=== PATIENT | female | born 1985 | race American Indian/Alaskan Native ===

== ENCOUNTER 2025-08-04 14:06 | Emergency (ER) | payer BC, OTHER ==
[~2025-08-04] VITALS: Ht 165.1 cm; Wt 93.5 kg
[~2025-08-04 14:06] MED LIST: CEFUROXIME500 MG PO; GLUCOPHAGE500 MG PO; METFORMIN HCL500 MG PO; [UNRECOGNIZED DRUG - OTHER] PO
[2025-08-04] MEDS ORDERED: OZEMPIC2 MG/0.75 (14:20)
[2025-08-04] MEDS ORDERED: BUDESONIDE-FO10.2 G1 (14:20)
[2025-08-04] MEDS ORDERED: SODIUM CHLORIDE 0.9% 1,000 ML IV PRN (14:30)
[2025-08-04 14:36] LABS: BASOPHILS 0.2 % (0.1-1.2); EOSINOPHILS 0.1 % (0.7-5.8); LYMPHOCYTES 9.5 % (19.3-51.7); MCH 28.1 PG (25.6-32.2); MCHC 34.4 g/dL (32.2-35.5); MCV 81.9 fL (79.4-94.8); MONOCYTES 2.8 % (4.7-12.5); NEUTROPHILS 87.0 % (34.0-71.1); RBC 5.40 M/uL (3.93-5.22)
[2025-08-04 14:53] LABS: ALT (SGPT) 37.0 U/L (14-59); AST (SGOT) 18.0 U/L (15-37); GLOMERULAR FILTRATION RATE,EST 88.0 mL/min (>60); PROTEIN, TOTAL 8.3 g/dL (6.4-8.2); UREA NITROGEN 10.0 mg/dL (7-18)
[2025-08-04] MEDS ORDERED: LIDOCAINE & ANTACID 35 ML BTL PO ONE (15:00)
[2025-08-04] MEDS ORDERED: FAMOTIDINE 20 MG/ 2 ML VIAL IV ONE (15:00)
[2025-08-04] MEDS ORDERED: HYDROmorphone HCL 1 MG/ML SYR IV ONE ×2 (15:00→16:15)
[2025-08-04] MEDS ORDERED: FLUTICASONE PRO16 GM (15:06)
[2025-08-04] MEDS ORDERED: VITAMIN D350 MC3 (15:08)
[2025-08-04] MEDS ORDERED: ALLERGY RELIEF10 MG (15:08)
[2025-08-04] MEDS ORDERED: POTASSIUM CHLORIDE 10 MEQ/100 ML BAG IV SCH (15:15)
[2025-08-04 17:26] LABS: BLOOD/HGB, URINE NEGATIVE (Negative); KETONE, URINE SMALL (Negative); LEUK ESTERASE, URINE NEGATIVE (negative); NITRITE, URINE NEGATIVE (negative)
[2025-08-04 17:33] VITALS: BP 114/78
[2025-08-04] MEDS ORDERED: ONDANSETRON HCL4 MG PO (18:01)
== END 2025-08-04 18:10 | disposition home or self-care (01) ==
LOC: ED 14:06
PROVIDERS: Emergency Medicine
DX: R10.33 Periumbilical pain (principal); R11.2 Nausea with vomiting, unspecified; J45.909 Unspecified asthma, uncomplicated; Z79.51 Long term (current) use of inhaled steroids; Z79.85 Long-term (current) use of injectable non-insulin antidiabetic drugs; Z79.84 Long term (current) use of oral hypoglycemic drugs; Z79.899 Other long term (current) drug therapy
CPT/HCPCS: 36415; 74177; 80053; 81003; 83690; 83735; 84703; 85025; 96361; 96365; 96366; 96375; 96376; 99284-25; J1171; J2405; J3480; J7030; Q9967

== ENCOUNTER 2025-09-13 11:59 | Emergency (ER) | payer BC, OTHER ==
[~2025-09-13] VITALS: Ht 165.1 cm; Wt 95.0 kg
[~2025-09-13 11:59] MED LIST changes: +ALLERGY RELIEF10 MG; +BUDESONIDE-FO10.2 G1; +FLUTICASONE PRO16 GM; +ONDANSETRON HCL4 MG PO; +OZEMPIC2 MG/0.75; +VITAMIN D350 MC3
[2025-09-13] MEDS ORDERED: SODIUM CHLORIDE 0.9% 1,000 ML IV PRN ×2 (12:45→13:15)
[2025-09-13 13:14] LABS: BASOPHILS 0.4 % (0.1-1.2); EOSINOPHILS 0.9 % (0.7-5.8); LYMPHOCYTES 13.8 % (19.3-51.7); MCH 28.3 PG (25.6-32.2); MCHC 34.0 g/dL (32.2-35.5); MCV 83.1 fL (79.4-94.8); MONOCYTES 5.7 % (4.7-12.5); NEUTROPHILS 78.6 % (34.0-71.1); RBC 5.45 M/uL (3.93-5.22)
[2025-09-13 13:32] LABS: ALT (SGPT) 36.0 U/L (14-59); AST (SGOT) 17.0 U/L (15-37); GLOMERULAR FILTRATION RATE,EST 99.0 mL/min (>60); PROTEIN, TOTAL 7.7 g/dL (6.4-8.2); UREA NITROGEN 10.0 mg/dL (7-18)
[2025-09-13 13:42] LABS: BLOOD/HGB, URINE NEGATIVE (Negative); KETONE, URINE NEGATIVE (Negative); LEUK ESTERASE, URINE NEGATIVE (negative); NITRITE, URINE NEGATIVE (negative)
[2025-09-13 13:48] LABS: CRYSTALS, URINE NONE SEEN (0-1+); EPITHELIAL CELLS, URINE SQUAMOUS 4+ /lpf (0-1+)
[2025-09-13 13:49] LABS: BACTERIA, URINE NONE SEEN /hpf (negative); CASTS, URINE NONE SEEN \\lpf; REFLEX CULTURE, URINE No (No)
[2025-09-13] MEDS ORDERED: ONDANSETRON ODT4 MG PO (14:12)
[2025-09-13 14:21] VITALS: BP 129/86
== END 2025-09-13 14:23 | disposition home or self-care (01) ==
LOC: ED 11:59
PROVIDERS: Emergency Medicine
DX: R11.2 Nausea with vomiting, unspecified (principal); J45.909 Unspecified asthma, uncomplicated; E11.9 Type 2 diabetes mellitus without complications
CPT/HCPCS: 36415; 80053; 81001; 83690; 83735; 84703; 85025; 96361; 96374; 96375; 99284-25; J1200; J1790; J2405; J7030

== ENCOUNTER 2025-10-31 20:26 | Emergency (ER) | payer BC, OTHER ==
[~2025-10-31] VITALS: Ht 165.1 cm; Wt 95.0 kg
--- OUTSIDE RECORDS SUMMARY | ~2025-10-31 | XMS | Continuity of Care Document ---
Demographics + + + | Address | [address] | | | [place] [address] | + + + | Preferred Language | Unknown | + + + | Marital Status | Never | + + + | Catholic Affiliation | Unknown | + + + | Race | or | + + + | Ethnic Group | Not or | + + + Author + + + | Author | [facility] | + + + | Organization | [facility] | + + + | Address | [address] | | | [place] [address] | + + + | Phone | | + + + Care Team Providers + + + + | Care Home Care Coordinator Name | Role | Phone | + + + + Unavailable | Unavailable | + + + + Unavailable | Unavailable | + + + + Allergies and Intolerances + + + + + + | date | description | facility | reaction | severity | + + + + + + | 2025-09-13 | UNK | [facility] - | (no reaction) | Moderate | | 00:00 | | [facility] | | | + + + + + + Encounters No information. Functional Status No information. Immunizations No information. Medications + + + + | date | description | facility | + + + + | (no date) | CETIRIZINE HCL | [facility] | | | | [facility] | + + + + | 2025-09-13 00:00 | ONDANSETRON | [facility] | | | | [facility] | + + + + | (no date) | Dextromethorphan | [facility] | | | Hb/Doxylamine | [facility] | + + + + | (no date) | Budesonide/Formoterol | [facility] | | | Fumarate | [facility] | + + + + | (no date) | FLUTICASONE PROPIONATE 50 | [facility] | | | MCG | [facility] | + + + + | 2025-08-04 00:00 | ONDANSETRON HCL | [facility] | | | | [facility] | + + + + | (no date) | Semaglutide | [facility] | | | | [facility] | + + + + | (no date) | Cholecalciferol (Vitamin | [facility] | | | D3) | [facility] | + + + + | (no date) | METFORMIN HCL | [facility] | | | | [facility] | + + + + | (no date) | metFORMIN HCL | [facility] | | | | [facility] | + + + + Problems + + + + | date | description | facility | + + + + | 2025-08-04 00:00 | Abdominal pain | [facility] | | | | [facility] | + + + + | 2025-08-04 00:00 | Vomiting | [facility] | | | | [facility] | + + + + Procedures No information. Results/Labs +--------+--------+ +---------+--------+---------+ | test | date | facility | value | unit | notes | +--------+--------+ +---------+--------+---------+ + + | Result panel 1 | + + + + + +---------+ + + | WBC # Bld | 2025-09-13 | | 12.68 | (missing) | (missing) | | Auto | 12:39:07 | [facility] | | | | + + + +---------+ + + + + | Result panel 2 | + + + + + +--------+ + + | Lymphocytes | 2025-09-13 | | 13.8 | (missing) | (missing) | | NFr Bld | 12:39:07 | [facility] | | | | | Auto | [facility] | | | | + + + +--------+ + + + + | Result panel 3 | + + + + + +-------+ + + | Monocytes | 2025-09-13 | | 5.7 | (missing) | (missing) | | NFr Bld Auto | 12:39:07 | [facility] | | | | + + + +-------+ + + + + | Result panel 4 | + + + + + +-------+ + + | Eosinophil | 2025-09-13 | | 0.9 | (missing) | (missing) | | NFr Bld Auto | 12:39:07 | [facility] | | | | + + + +-------+ + + + + | Result panel 5 | + + + + + +-------+ + + | Basophils | 2025-09-13 | | 0.4 | (missing) | (missing) | | NFr Bld Auto | 12:39:07 | [facility] | | | | + + + +-------+ + + + + | Result panel 6 | + + + + + +--------+ + + | RBC # Bld | 2025-09-13 | | 5.45 | (missing) | (missing) | | Auto | 12:39:07 | [facility] | | | | | [facility] - [facility] | [facility] | | | | + + + +--------+ + + + + | Result panel 7 | + + + + + +--------+ + + | Hgb | 2025-09-13 | | 15.4 | (missing) | (missing) | | Bld-mCnc | 12:39:07 | [facility] | | | | + + + +--------+ + + + + | Result panel 8 | + + + + + +-------+---------+ + | Glucose | 2025-09-13 | | 144 | mg/dL | (missing) | | SerPl-mCnc | 12:39:07 | [facility] | | | | + + + +-------+---------+ + + + | Result panel 9 | + + + + + +------+---------+ + | BUN | 2025-09-13 | | 10 | mg/dL | (missing) | | SerPl-mCnc | 12:39:07 | [facility] | | | | + + + +------+---------+ + + + | Result panel 10 | + + + + + +--------+---------+ + | Creat | 2025-09-13 | | 0.78 | mg/dL | (missing) | | SerPl-mCnc | 12:39:07 | [facility] | | | | + + + +--------+---------+ + + + | Result panel 11 | + + + + + +------+ + + | eGFRcr | 2025-09-13 | | 99 | (missing) | (missing) | | SerPlBld | 12:39:07 | [facility] | | | | | CKD-EPI 2020 | [facility] | | | | + + + +------+ + + + + | Result panel 12 | + + + + + +---------+ + + | BUN/Creat | 2025-09-13 | | 12.82 | (missing) | (missing) | | SerPl | 12:39:07 | [facility] | | | | + + + +---------+ + + + + | Result panel 13 | + + + + + +-------+ + + | Sodium | 2025-09-13 | | 142 | (missing) | (missing) | | SerPl-sCnc | 12:39:07 | [facility] | | | | + + + +-------+ + + + + | Result panel 14 | + + + + + +--------+ + + | Hct VFr.DF | 2025-09-13 | | 45.3 | (missing) | (missing) | | Bld Auto | 12:39:07 | [facility] | | | | + + + +--------+ + + + + | Result panel 15 | + + + + + +-------+ + + | Potassium | 2025-09-13 | | 3.6 | (missing) | (missing) | | SerPl-sCnc | 12:39:07 | [facility] | | | | + + + +-------+ + + + + | Result panel 16 | + + + + + +-------+ + + | Chloride | 2025-09-13 | | 100 | (missing) | (missing) | | SerPl-sCnc | 12:39:07 | [facility] | | | | + + + +-------+ + + + + | Result panel 17 | + + + + + +------+ + + | CO2 | 2025-09-13 | | 28 | (missing) | (missing) | | SerPl-sCnc | 12:39:07 | [facility] | | | | + + + +------+ + + + + | Result panel 18 | + + + + + +--------+ + + | Anion Gap | 2025-09-13 | | 17.6 | (missing) | (missing) | | SerPl | 12:39:07 | [facility] | | | | | Calculated.4 | [facility] | | | | + + + +--------+ + + + + | Result panel 19 | + + + + + +-------+---------+ + | Calcium | 2025-09-13 | | 9.4 | mg/dL | (missing) | | [facility] | 12:39:07 | [facility] | | | [facility] | | | | + + + +-------+---------+ + + + | Result panel 20 | + + + + + +-------+---------+ + | Magnesium | 2025-09-13 | | 1.4 | mg/dL | (missing) | | SerPl-mCnc | 12:39:07 | [facility] | | | | + + + +-------+---------+ + + + | Result panel 21 | + + + + + +-------+ + + | Prot | 2025-09-13 | | 7.7 | (missing) | (missing) | | [facility] | 12:39:07 | [facility] | | | | + + + +-------+ + + + + | Result panel 22 | + + + + + +-------+ + + | Albumin | 2025-09-13 | | 3.9 | (missing) | (missing) | | SerPl-mCnc | 12:39:07 | [facility] | | | | + + + +-------+ + + + + | Result panel 23 | + + + + + +-------+ + + | Globulin | 2025-09-13 | | 3.8 | (missing) | (missing) | | [facility] | 12:39:07 | [facility] | | | | + + + +-------+ + + + + | Result panel 24 | + + + + + +--------+ + + | | 2025-09-13 | | 1.03 | (missing) | (missing) | | Albumin/Glob | 12:39:07 | [facility] | | | | | SerPl | [facility] | | | | + + + +--------+ + + + + | Result panel 25 | + + + + + +--------+ + + | RBC Auto | 2025-09-13 | | 83.1 | (missing) | (missing) | | | 12:39:07 | [facility] | | | | + + + +--------+ + + + + | Result panel 26 | + + + + + +-------+---------+ + | Bilirub | 2025-09-13 | | 0.7 | mg/dL | (missing) | | SerPl-mCnc | 12:39:07 | [facility] | | | | + + + +-------+---------+ + + + | Result panel 27 | + + + + + +------+ + + | AST | 2025-09-13 | | 17 | (missing) | (missing) | | SerPl-cCnc | 12:39:07 | [facility] | | | | + + + +------+ + + + + | Result panel 28 | + + + + + +------+ + + | ALT | 2025-09-13 | | 36 | (missing) | (missing) | | SerPl-cCnc | 12:39:07 | [facility] | | | | + + + +------+ + + + + | Result panel 29 | + + + + + +-------+ + + | ALP | 2025-09-13 | | 118 | (missing) | (missing) | | SerPl-cCnc | 12:39:07 | [facility] | | | | + + + +-------+ + + + + | Result panel 30 | + + + + + +------+ + + | Lipase | 2025-09-13 | | 45 | (missing) | (missing) | | SerPl-cCnc | 12:39:07 | [facility] | | | | + + + +------+ + + + + | Result panel 31 | + + + + + + + + + | HCG SerPl | 2025-09-13 | | NEGATIVE | (missing) | (missing) | | Ql | 12:39:07 | [facility] | | | | + + + + + + + + + | Result panel 32 | + + + + + +--------+ + + | MCH RBC Qn | 2025-09-13 | | 28.3 | (missing) | (missing) | | Auto | 12:39:07 | [facility] | | | | + + + +--------+ + + + + | Result panel 33 | + + + + + +--------+ + + | MCHC RBC | 2025-09-13 | | 34.0 | (missing) | (missing) | | Auto-EntMCnc | 12:39:07 | [facility] | | | | + + + +--------+ + + + + | Result panel 34 | + + + + + +-------+ + + | Platelet # | 2025-09-13 | | 330 | (missing) | (missing) | | Bld Auto | 12:39:07 | [facility] | | | | + + + +-------+ + + + + | Result panel 35 | + + + + + +--------+ + + | Neutrophils | 2025-09-13 | | 78.6 | (missing) | (missing) | | NFr Bld | 12:39:07 | [facility] | | | | | Auto | [facility] | | | | + + + +--------+ + + + + | Result panel 36 | + + + + + + + + + | Color Ur | 2025-09-13 | | YELLOW | (missing) | (missing) | | Auto | 13:30:07 | [facility] | | | | + + + + + + + + + | Result panel 37 | + + + + + +---------+ + + | Character | 2025-09-13 | | CLEAR | (missing) | (missing) | | Ur | 13::07 | [facility] | | | | + + + +---------+ + + + + | Result panel 38 | + + + + + + + + + | Glucose Ur | 2025-09-13 | | NEGATIVE | (missing) | (missing) | | Ql Strip | 13:30:07 | [facility] | | | | + + + + + + + + + | Result panel 39 | + + + + + + + + + | Bethanie Rodriguez | 2025-09-13 | | NEGATIVE | (missing) | (missing) | | Ql Strip | 13:30:07 | [facility] | | | | + + + + + + + + + | Result panel 40 | + + + + + + + + + | Ketones Ur | 2025-09-13 | | NEGATIVE | (missing) | (missing) | | Ql Strip | 13:30:07 | [facility] | | | | + + + + + + + + + | Result panel 41 | + + + + + +---------+ + + | Sp Gr Ur | 2025-09-13 | | 1.020 | (missing) | (missing) | | Strip | 13:30:07 | [facility] | | | | + + + +---------+ + + + + | Result panel 42 | + + + + + + + + + | Hgb Ur Ql | 2025-09-13 | | NEGATIVE | (missing) | (missing) | | Strip | 13:30:07 | [facility] | | | | + + + + + + + + + | Result panel 43 | + + + + + +-------+ + + | pH Ur Strip | 2025-09-13 | | 8.5 | (missing) | (missing) | | | 13:30:07 | [facility] | | | | + + + +-------+ + + + + | Result panel 44 | + + + + + +------+ + + | Prot Ur | 2025-09-13 | | 30 | (missing) | (missing) | | Strip-mCnc | 13:30:07 | [facility] | | | | + + + +------+ + + + + | Result panel 45 | + + + + + + + + + | | 2025-09-13 | | NORMAL | (missing) | (missing) | | Urobilinogen | 13:30:07 | [facility] | | | | | Ur | [facility] | | | | + + + + + + + + + | Result panel 46 | + + + + + + + + + | Nitrite Ur | 2025-09-13 | | NEGATIVE | (missing) | (missing) | | Ql Strip | 13:30:07 | [facility] | [facility] | | | | + + + + + + + + + | Result panel 47 | + + + + + + + + + | Leukocyte | 2025-09-13 | | NEGATIVE | (missing) | (missing) | | esterase Ur | 13:30:07 | [facility] | | | | | Ql Strip | [facility] | | | | + + + + + + + + + | Result panel 48 | + + + + + +-------+ + + | RBC #/area | 2025-09-13 | | 0-1 | (missing) | (missing) | | UrnS HPF | 13:30:07 | [facility] | | | | | [facility] | | | | + + + +-------+ + + + + | Result panel 49 | + + + + + +-------+ + + | WBC #/area | 2025-09-13 | | 0-1 | (missing) | (missing) | | UrnS HPF | 13:30:07 | [facility] | | | | | [facility] | | | | + + + +-------+ + + + + | Result panel 50 | + + + + + + + + + | Epi Cells | 2025-09-13 | | SQUAMOUS 4+ | (missing) | (missing) | | #/area UrnS | 13:30:07 | [facility] | | | | | HPF | [facility] | | | | + + + + + + + + + | Result panel 51 | + + + + + + + + + | Crystals | 2025-09-13 | | NONE SEEN | (missing) | (missing) | | UrnS Micro | 13:30:07 | [facility] | [facility] | | [facility] | | | | + + + + + + + + + | Result panel 52 | + + + + + + + + + | Bacteria | 2025-09-13 | | NONE SEEN | (missing) | (missing) | | #/area UrnS | 13:30:07 | [facility] | | | | | HPF [facility] | | | | + + + + + + + + + | Result panel 53 | + + + + + + + + + | Casts | 2025-09-13 | | NONE SEEN | (missing) | (missing) | | #/area UrnS | 13:30:07 | [facility] | | | | | LPF | [facility] | | | | + + + + + + + + + | Result panel 54 | + + + + + +------+ + + | Bacteria Ur | 2025-09-13 | | No | (missing) | (missing) | | Cult | 13:30:07 | [facility] | | | | | [facility] | | | | + + + +------+ + + + + | Result panel 55 | + + + + + + + + + | Urn Spec | 2025-09-13 | | CLEAN CATCH | (missing) | (missing) | | Collect Meth | 13:30:07 | [facility] | | | | | Ur | [facility] | | | | + + + + + + + Social History +--------+ + + | date | description | facility | +--------+ + + Vital Signs + + + +---------+ | date | measurement | value | units | + + + +---------+ | 2025-09-13 00:00 | BMI | 34.9 | kg/m2 | + + + +---------+ | 2025-09-13 00:00 | BP_diastolic | 86 | mmHg | + + + +---------+ | 2025-09-13 00:00 | BP_systolic | 129 | mmHg | + + + +---------+ | 2025-09-13 00:00 | heart_rate | 83 | /min | + + + +---------+ | 2025-09-13 00:00 | height_metric | 165.1 | cm | + + + +---------+ | 2025-09-13 00:00 | height_standard | 65 | in | + + + +---------+ | 2025-09-13 00:00 | o2_saturation | 98 | % | + + + +---------+ | 2025-09-13 00:00 | respiration_rate | 16 | /min | + + + +---------+ | 2025-09-13 00:00 | | 98.9 | F | | | temperature_standar | | | | | d | | | + + + +---------+ | 2025-09-13 00:00 | weight_metric | 94.999 | kg | + + + +---------+ | 2025-09-13 00:00 | weight_standard | 209.437 | lb | + + + +---------+"
[~2025-10-31 20:26] MED LIST changes: +ONDANSETRON ODT4 MG PO
[2025-10-31] MEDS ORDERED: PRENATAL VITAM1 EAC5 (20:44)
[2025-10-31] MEDS ORDERED: PROMETHAZINE12.5 M1 PO (20:44)
[2025-10-31] MEDS ORDERED: FAMOTIDINE 20 MG/ 2 ML VIAL IV ONE (21:00)
[2025-10-31] MEDS ORDERED: LACTATED RINGER'S 1,000 ML IV ONE ×2 (21:00→23:00)
[2025-10-31 21:03] LABS: BASOPHILS 0.3 % (0.1-1.2); EOSINOPHILS 1.4 % (0.7-5.8); LYMPHOCYTES 13.8 % (19.3-51.7); MCH 28.5 PG (25.6-32.2); MCHC 34.2 g/dL (32.2-35.5); MCV 83.3 fL (79.4-94.8); MONOCYTES 6.0 % (4.7-12.5); NEUTROPHILS 78.0 % (34.0-71.1); RBC 5.26 M/uL (3.93-5.22)
[2025-10-31 21:25] LABS: ALT (SGPT) 20.0 U/L (14-59); AST (SGOT) 12.0 U/L (15-37); GLOMERULAR FILTRATION RATE,EST 91.0 mL/min (>60); PROTEIN, TOTAL 8.1 g/dL (6.4-8.2); UREA NITROGEN 11.0 mg/dL (7-18)
[2025-10-31] MEDS ORDERED: MORPHINE SULFATE 4 MG/ML VIAL IV ONE ×2 (22:00→23:00)
[2025-10-31 23:14] LABS: LACTIC ACID, BLOOD 1.8 mmol/L (0.4-2.0)
[2025-10-31] MEDS ORDERED: MAGNESIUM OXIDE 400 MG TABLET PO ONE (23:45)
[2025-11-01 00:07] LABS: BLOOD/HGB, URINE TRACE-I (Negative); KETONE, URINE SMALL (Negative); LEUK ESTERASE, URINE NEGATIVE (negative); NITRITE, URINE NEGATIVE (negative)
[2025-11-01 00:13] LABS: EPITHELIAL CELLS, URINE SQUAMOUS 2+ /lpf (0-1+)
[2025-11-01 00:14] LABS: BACTERIA, URINE RARE /hpf (negative); CASTS, URINE NONE SEEN \\lpf; CRYSTALS, URINE NONE SEEN (0-1+)
[2025-11-01 00:15] LABS: REFLEX CULTURE, URINE No (No)
[2025-11-01] MEDS ORDERED: ONDANSETRON 4 MG HOME.PACK SL ONE (00:30)
[2025-11-01] MEDS ORDERED: ONDANSETRON ODT4 MG PO (00:39)
[2025-11-01 00:51] VITALS: BP 117/68
== END 2025-11-01 00:53 | disposition home or self-care (01) ==
LOC: ED 20:26
PROVIDERS: Internal Medicine
DX: B34.9 Viral infection, unspecified (principal); E86.0 Dehydration; J45.909 Unspecified asthma, uncomplicated; E11.9 Type 2 diabetes mellitus without complications
CPT/HCPCS: 36415; 74177; 80053; 81001; 82550; 83605; 83690; 83735; 84703; 85025; 87040; 96361; 96374; 96375; 96376; 99284-25; A9270; J0696; J2270; J2405; J7121; Q9967